=== PATIENT | male | born 1970 | race Caucasian/White ===

== ENCOUNTER 2017-03-27 18:37 | Emergency (ER) | payer OTHER ==
[2017-03-27 18:46] VITALS: BP 125/71; PULSE 72; TEMP 98; BMI 21.8
--- NOTE | 2017-03-27 19:08 | PDOC ---
History of Present Illness - General Chief Complaint: Laceration Stated Complaint: LACERATION Time Seen by Provider: 03/27/17 18:48 History Source: Sn[facility] Records - History of Present Illness Timing/Duration: reports: 1-3 hours Associated Symptoms: denies: loss of consciousness, nausea/vomiting, seizures Past History - Past Medical History Allergies/Adverse Reactions: Allergies Allergy/AdvReac Type Severity Reaction Status Date / Time No Known Allergies Allergy Verified 03/27/17 18:41 Home Medications: Ambulatory Orders Docusate Sodium [Colace -] 100 mg PO BID 01/09/16 [place]-3/Dha/Epa/Fish Oil [Fish Oil [place]-3 EC 1,200 mg] 1 each PO DAILY Polyethylene Glycol 3350 [Glycolax] 17 gr PO BID 01/09/16 Quetiapine Fumarate "Xr" [Seroquel Xr -] 300 mg PO DAILY 01/09/16 Sertraline HCl [Zoloft] 200 mg PO DAILY 01/09/16 Simvastatin [Zocor -] 20 mg PO HS 01/09/16 Triamcinolone Acetonide [Nasacort] 55 mcg NS DAILY 01/09/16 Cholecalciferol (Vitamin D3) [Vitamin D3 -] 1,000 unit PO DAILY 07/31/16 Lamotrigine [Lamotrigine ER] 300 mg PO BID 07/31/16 Tamsulosin HCl 0.4 mg PO HS 07/31/16 Hypercholesterolemia: Yes Seizures: Yes Other medical history: cerebral palsy - Immunization History Immunization Up to Date: Yes - Psycho/Social/Smoking Cessation Hx Anxiety: No Suicidal Ideation: No Smoking Status: No Smoking History: Never smoked Have you smoked in the past 12 months: No Number of Cigarettes Smoked Daily: 0 Information on smoking cessation initiated: No Hx Alcohol Use: No Drug/Substance Use Hx: No Substance Use Type: None Review of Systems - Review of Systems ABD/GI: No: Vomiting Neurological: No: Seizure *Physical Exam - Vital Signs Last Vital Signs Temp Pulse Resp BP Pulse Ox 98.0 F 72 18 125/71 100 03/27/17 18:44 03/27/17 18:44 03/27/17 18:44 03/27/17 18:44 03/27/17 18:44 - Physical Exam General Appearance: Yes: Appropriately Dressed. No: Apparent Distress HEENT: positive: Normal Voice, Other (~0.5 cm linear, superficial lac to R brow) Neck: positive: Supple. negative: Decreased range of motion Respiratory/Chest: negative: Respiratory Distress Gastrointestinal/Abdominal: positive: Soft. negative: Distended, Guarding, Mass Extremity: positive: Normal Inspection Integumentary: positive: Dry, Warm Neurologic: positive: Alert Procedures - Laceration/Wound Repair Face Wound Length: to 2.5 cm Wound Explored: clean Wound's Depth, Shape: superficial Anesthesia: 1% Lidocaine Amount of Anesthetic (ccs): 4 Wound Repaired With: Sutures Suture Size/Type: 6:0, nylon Number of Sutures: 3 Sterile Dressing Applied: Yes ED Treatment Course - RADIOLOGY Radiology Studies Ordered: Category Date Time Status HEAD CT WITHOUT CONTRAST [CT] Stat CT Scan 03/27/17 19:03 Ordered Medical Decision Making - Medical Decision Making 03/27/17 19:05 46 yo M, h/o CP, sent from [facility] for witnessed head injury. As per foot drill operator who is at bedside, pt slipped on paper on floor at facility today and fell forwards hitting head. No LOC. Pt able to communicate somewhat in ED and denies HEARD, dizziness, n/v. Not on blood thinners See exam Head injury s/p witnessed mechanical fall No LOC, seizures, vomiting or change in MS Not on blood thinners -lac repair -tetanus UTD -CT head given developmental delay 03/27/17 19:42 03/27/17 19:43 03/27/17 20:29 CT head neg. Pt discharged back to facility in stable condition 03/27/17 20:30 *DC/Admit/Observation/Transfer Diagnosis at time of Disposition: Laceration Closed head injury Qualifiers: Encounter type: initial encounter Qualified Code(s): S09.90XA - Unspecified injury of head, initial encounter - Discharge Dispostion Disposition: HOME Condition at time of disposition: Good - Referrals Referrals: Georgina Meneses [Primary Care Provider] - - Patient Instructions Printed Discharge Instructions: DI for Closed Head Injury, DI for Laceration Repair Additional Instructions: Keep dressing in place for at least 24 hours after which one can be opened to air. You can gently cleaned wound with mild soap and water after 24 hours to prevent crusting over the suture knots. You can also apply an antibiotic ointment twice a day until sutures are removed. Return for redness, discharge or fever Sutures are removed in [address] head was normal
== END 2017-03-27 20:34 | disposition home or self-care (01) ==
LOC: JERFT 18:37
PROC: 0HQ1XZZ Repair Face Skin, External Approach (ICD-10-PCS; principal; 2017-03-27)
DX: S01.111A Laceration without foreign body of right eyelid and periocular area, initial encounter (principal); W01.198A Fall on same level from slipping, tripping and stumbling with subsequent striking against other object, initial encounter; Y93.89 Activity, other specified; Y92.098 Other place in other non-institutional residence as the place of occurrence of the external cause; E78.00 Pure hypercholesterolemia, unspecified; G80.8 Other cerebral palsy; Z86.69 Personal history of other diseases of the nervous system and sense organs
CPT/HCPCS: 12011-25; 70450-TC; 99282-25

== ENCOUNTER 2017-04-03 08:35 | Emergency (ER) | payer OTHER ==
[2017-04-03 08:44] VITALS: BP 122/72; PULSE 81; TEMP 98; BMI 22.6
--- NOTE | 2017-04-03 09:13 | PDOC ---
Suture Removal/Wound Check HPI - History of Present Illness Chief Complaint: Suture/Staple Removal(Here) Stated Complaint: SUTURE REMOVAL Time Seen by Provider: 04/03/17 08:48 History Source: Yes: Care Provider Exam Limitations: Yes: No Limitations Treated at: [facility] Date of Last ED visit: 03/27/17 - Previous ED Treatment Type of procedure performed on last visit: Yes: Laceration Repair Tetanus Immunization: Yes: Up to Date Antibiotics Prescribed: No Past History - Past Medical History Allergies/Adverse Reactions: Allergies No Known Allergies Allergy (Verified 04/03/17 08:44) Home Medications: Ambulatory Orders Docusate Sodium [Colace -] 100 mg PO BID 01/09/16 [place]-3/Dha/Epa/Fish Oil [Fish Oil [place]-3 EC 1,200 mg] 1 each PO DAILY Polyethylene Glycol 3350 [Glycolax] 17 gr PO BID 01/09/16 Quetiapine Fumarate "Xr" [Seroquel Xr -] 300 mg PO DAILY 01/09/16 Sertraline HCl [Zoloft] 200 mg PO DAILY 01/09/16 Simvastatin [Zocor -] 20 mg PO HS 01/09/16 Triamcinolone Acetonide [Nasacort] 55 mcg NS DAILY 01/09/16 Cholecalciferol (Vitamin D3) [Vitamin D3 -] 1,000 unit PO DAILY 07/31/16 Lamotrigine [Lamotrigine ER] 300 mg PO BID 07/31/16 Tamsulosin HCl 0.4 mg PO HS 07/31/16 - Immunization History Immunizations Up to Date: Yes Tetanus Status: Unknown - Social History Smoking History: No Smoking Status: Never smoked Number of Ciarettes Per Day: 0 Alcohol Use: none Drug Use: none Suture Removal/Wound Check PE - Physical Exam Laceration/Wound Check Symptoms: reports: None Current Severity Level: None Maximum Severity Level: None Pain Localization: None Location of Laceration/Wound: right: Face (right eyebrow) *Review of Systems - Review of Systems Constitutional: No: Symptoms Reported Integumentary: No: Symptoms Reported Hematologic/Lymphatic: No: Symptoms Reported All Other Systems: Reviewed and Negative Medical Decision Making - Medical Decision Making 04/03/17 09:11 3 sutures removed from the right eyebrow without difficulty there is no erythema edema or secondary signs of infection. 04/03/17 09:12 *DC/Admit/Observation/Transfer Diagnosis at time of Disposition: Visit for suture removal - Discharge Dispostion Disposition: HOME Condition at time of disposition: Good Admit: No - Patient Instructions Printed Discharge Instructions: DI for Suture Removal Additional Instructions: Please keep area clean and dry
== END 2017-04-03 09:16 | disposition home or self-care (01) ==
LOC: JERFT 08:35
DX: Z48.02 Encounter for removal of sutures (principal)
CPT/HCPCS: 99281-25

== ENCOUNTER 2019-05-26 09:27 | Emergency (ER) | payer OTHER ==
[2019-05-26 09:52] VITALS: BP 105/68; PULSE 77; TEMP 97.8; BMI 23.6
--- NOTE | 2019-05-26 10:12 | PDOC ---
History of Present Illness - General Chief Complaint: Injury Stated Complaint: FACE INJURY Time Seen by Provider: 05/26/19 09:32 - History of Present Illness Initial Comments: 05/26/19 10:14 49 years old with past medical history significant for MR, seizure disorder, hyperlipidemia presents to the emergency department status post facial injury unwitnessed over the weekend was seen in urgent care and referred to the emergency department for CAT scan. Per health care provider patient has been acting normally has a bruise under his right eye history limited by MR Past History - Past Medical History Allergies/Adverse Reactions: Allergies Allergy/AdvReac Type Severity Reaction Status Date / Time No Known Allergies Allergy Verified 05/26/19 09:29 Home Medications: Ambulatory Orders Docusate Sodium [Colace -] 100 mg PO BID 01/09/16 [place]-3/Dha/Epa/Fish Oil [Fish Oil [place]-3 EC 1,200 mg] 1 each PO DAILY Polyethylene Glycol 3350 [Glycolax] 17 gr PO BID 01/09/16 Quetiapine Fumarate "Xr" [Seroquel Xr -] 300 mg PO DAILY 01/09/16 Sertraline HCl [Zoloft] 200 mg PO DAILY 01/09/16 Simvastatin [Zocor -] 20 mg PO HS 01/09/16 Triamcinolone Acetonide [Nasacort] 55 mcg NS DAILY 01/09/16 Cholecalciferol (Vitamin D3) [Vitamin D3 -] 1,000 unit PO DAILY 07/31/16 Lamotrigine [Lamotrigine ER] 300 mg PO BID 07/31/16 COPD: No Hypercholesterolemia: Yes Psychiatric Problems: Yes (UNSPECIFIED MENTAL DISORDER) Seizures: Yes Other medical history: CEREBRAL PALSY, EPILEPSY, ALLERGIC RHINITIS - Immunization History Immunization Up to Date: Yes - Psycho Social/Smoking Cessation Hx Smoking Status: No Smoking History: Unknown if ever smoked Have you smoked in the past 12 months: No Number of Cigarettes Smoked Daily: 0 Information on smoking cessation initiated: No Hx Alcohol Use: No Drug/Substance Use Hx: No Substance Use Type: None *Physical Exam - Vital Signs Last Vital Signs Temp Pulse Resp BP Pulse Ox 97.8 F 77 18 105/68 98 05/26/19 09:27 05/26/19 09:27 05/26/19 09:27 05/26/19 09:27 05/26/19 09:27 - Physical Exam Comments: 05/26/19 13:16 Vitals: Triage Vital signs reviewed General Appearance: No acute distress, well nourished well developed, Head: Small area of ecchymosis under right eye Eyes: Pupils equal reactive round, extraocular movement intact Ears: TM's normal bilaterally; Nose: Nares patent bilaterally; no nasal congestion Throat: Posterior oropharynx without erythema, mucous membranes moist, Neck: Supple; no Nucal rigidity Chest Wall: Nontender Cardiac: Regular rate and rhythym, no murmurs, no rubs, no gallops, Lungs: Clear to auscultation bilateral, good air movement bilaterally, Abdomen: Soft, non distended, normal bowel sounds, non tender to palpation Extremities: Full range of motion to all extremities, no cyanosis, clubbing, or edema Skin: Warm and dry, no rashes or lesions, no rash, no petechiae Neuro: Strength intact to all extremities, sensation intact to all extremities, gait normal Psych: Normal mood, normal affect to get back ED Treatment Course - RADIOLOGY Radiology Studies Ordered: Category Date Time Status FACIAL BONES CT W/O CONTRAST [CT] Stat CT Scan 05/26/19 09:[address] WITHOUT CONTRAST [CT] Stat CT Scan 05/26/19 09:39 Taken Medical Decision Making - Medical Decision Making 05/26/19 13:19 Unwitnessed minor facial injury extraocular movements intact well-appearing no apparent distress sent from urgent care for CAT scans CT head with no acute findings CT facial bones suggest a questionable left nondepressed fracture He has slight bruising under his right eye grossly his acuity is intact extraocular movements intact Findings, the need for follow-up and strict return instructions discussed with reliner Discharge - Discharge Information Problems reviewed: Yes Clinical Impression/Diagnosis: Nasal fracture Qualifiers: Encounter type: initial encounter Fracture type: closed Qualified Code(s): S02.2XXA - Fracture of nasal bones, initial encounter for closed fracture Condition: Stable - Admission No - Follow up/Referral - Patient Discharge Instructions Patient Printed Discharge Instructions: DI for Closed Head Injury Additional Instructions: Follow-up with your primary care provider. Ice 20 minutes on 20 minutes off. [id number] Tylenol as directed on package if needed for pain. Return to ED for any changes in vision severe headache changes in behavior or for any concerns. - Post Discharge Activity
== END 2019-05-26 13:35 | disposition home or self-care (01) ==
LOC: FER 09:27
DX: S02.2XXA Fracture of nasal bones, initial encounter for closed fracture (principal); X58.XXXA Exposure to other specified factors, initial encounter; Y93.89 Activity, other specified; Y92.89 Other specified places as the place of occurrence of the external cause; E78.00 Pure hypercholesterolemia, unspecified; F99 Mental disorder, not otherwise specified; G80.9 Cerebral palsy, unspecified; G40.909 Epilepsy, unspecified, not intractable, without status epilepticus; J30.9 Allergic rhinitis, unspecified
CPT/HCPCS: 70450-TC; 70486-TC; 99283-25

== ENCOUNTER 2021-03-30 10:10 | Emergency (ER) | payer OTHER ==
[2021-03-30 10:28] VITALS: BP 129/78; PULSE 88; TEMP 99.3; BMI 23.5
== END 2021-03-30 12:37 | disposition home or self-care (01) ==
LOC: JER 10:10 → JERFT 10:10
DX: S00.03XA Contusion of scalp, initial encounter (principal); S09.90XA Unspecified injury of head, initial encounter; W01.0XXA Fall on same level from slipping, tripping and stumbling without subsequent striking against object, initial encounter
CPT/HCPCS: 70450-TC; 99284-25

== ENCOUNTER 2022-05-31 11:38 | Emergency (ER) | payer OTHER ==
[2022-05-31 11:52] VITALS: BP 114/78; PULSE 84; RESP 18; TEMP 96; BMI 22.8
== END 2022-05-31 12:48 | disposition home or self-care (01) ==
LOC: FER 11:38
DX: H00.011 Hordeolum externum right upper eyelid (principal)
CPT/HCPCS: 99281-25

== ENCOUNTER 2023-12-28 09:07 | Emergency (ER) | payer OTHER ==
[2023-12-28 09:35] VITALS: BP 136/75; PULSE 53; RESP 18; TEMP 98.4; BMI 24.7
[2023-12-28] MEDS ORDERED: SULFAMETHOXAZOLE/TRIMETHOPRIM 800MG/160MG D.S. TABLET ONE (10:10)
[2023-12-28] MEDS: SULFAMETHOXAZOLE/TRIMETHOPRIM 800MG/160MG D.S. TABLET PO ONE (10:15)
== END 2023-12-28 10:37 | disposition home or self-care (01) ==
LOC: SUPCPDRO 09:07 → FER 09:07
DX: L02.01 Cutaneous abscess of face (principal)
CPT/HCPCS: 99284-25

== ENCOUNTER 2024-01-01 02:56 | Emergency (ER) | payer OTHER ==
[2024-01-01 03:15] VITALS: BP 137/100; PULSE 121; RESP 20; BMI 26.7
== END 2024-01-01 04:49 | disposition home or self-care (01) ==
LOC: FER 02:56
DX: S00.03XA Contusion of scalp, initial encounter (principal); W06.XXXA Fall from bed, initial encounter
CPT/HCPCS: 70450-TC; 99284-25

== ENCOUNTER 2024-01-12 20:48 | Emergency (ER) | payer OTHER ==
[2024-01-12 21:03] VITALS: BP 157/95; PULSE 104; RESP 18; TEMP 98; BMI 26.7
== END 2024-01-12 22:11 | disposition home or self-care (01) ==
LOC: FER 20:48
DX: S01.311A Laceration without foreign body of right ear, initial encounter (principal); W08.XXXA Fall from other furniture, initial encounter; Y92.009 Unspecified place in unspecified non-institutional (private) residence as the place of occurrence of the external cause
CPT/HCPCS: 99282-25

== ENCOUNTER 2024-11-04 13:46 | Emergency (ER) | payer OTHER ==
[2024-11-04 14:27] VITALS: BP 112/75; PULSE 88; RESP 18; TEMP 97.6; BMI 26.5
[2024-11-04] MEDS: DALBAVANCIN HCL 1,500 MG in DEXTROSE 5%-WATER - 500 ML IVPB ONE (14:33)
== END 2024-11-04 15:50 | disposition home or self-care (01) ==
LOC: FER 13:46
DX: L03.811 Cellulitis of head [any part, except face] (principal)
CPT/HCPCS: 96365; 99284-25; J0875